=== PATIENT | female | born 1975 | race Caucasian/White ===

== ENCOUNTER → 2021-07-30 | Outpatient (CLI) | payer BC ==
[~2021-07-30] MED LIST: OXYC1TAB15 PO
[2021-07-30 22:08] LABS: AFPT MARKER 7.8 ng/mL (0.0-8.3); CA 125 10.8 U/mL (0.0-38.1)
== END ==
LOC: LAB 11:58
PROVIDERS: ATTEND Obstetrics & Gynecology
DX: N83.209 Unspecified ovarian cyst, unspecified side (principal)
CPT/HCPCS: 36415; 82105; 82378; 83615; 84702; 86304; 84704